=== PATIENT | female | born 1985 | race Caucasian/White ===

== ENCOUNTER 2022-05-11 09:42 | Outpatient (CLI) | payer OTHER, SELFPAY ==
[2022-05-11 12:24] LABS: Partial Thromboplastin Time* 27 Seconds (23-33)
== END 2022-05-11 09:43 | disposition home or self-care (01) ==
PROVIDERS: Visit Provider Obstetrics & Gynecology
DX: O09.523 Supervision of elderly multigravida, third trimester (principal); R76.8 Other specified abnormal immunological findings in serum; Z3A.30 30 weeks gestation of pregnancy
CPT/HCPCS: 85730

== ENCOUNTER 2022-06-23 08:56 | Outpatient (CLI) | payer OTHER, SELFPAY ==
--- OUTSIDE RECORDS SUMMARY | 2022-06-23 09:05 | XMS_ITS | Continuity of Care Document ---
:1985 Author Organization [facility] Address [address] [address] [place] [address] Phone Care Team Providers Name Role Phone Radha Shaffer Unavailable Unavailable Advance Directives Directive Yes / No Effective Date File Name No Information Encounters Encounter Practice Location Reason(s) Diagnoses Date Provider Provide rs Description For Visit Copied on Encounter [facility] No [facility] Information SUZETTE Garcia. [facility], [address] [address], [address] [place] [address], , [place], [facility] [id number], , [place], [id number], tel:[phone] tel:[phone] Family History Family Member Type Diagnosis Age At Onset No Information Immunizations Vaccine Date Status Comments tetanus toxoid, reduced administered Note: SC IC bi-directional diphtheria toxoid, and acellular interface ; Source: Other pertussis vaccine, adsorbed Lorena stry tetanus toxoid, reduced administered Note: SC IC bi-directional diphtheria toxoid, and acellular interface ; Source: Other pertussis vaccine, adsorbed Lorena stry tetanus toxoid, reduced administered Note: SC IC bi-directional diphtheria toxoid, and acellular interface ; Source: Other pertussis vaccine, adsorbed Lorena stry human papilloma virus vaccine, administered N ote: [facility] bi-directional quadrivalent interface ; Sour ce: Other Registry tetanus toxoid, reduced administered Note: SC IC bi-directional diphtheria toxoid, and acellular interface ; Source: Other pertussis vaccine, adsorbed Lorena stry Human Papillomavirus 9-valent administered No te: [facility] bi-directional vaccine interface ; Sour ce: Other Registry human papilloma virus vaccine, administered N ote: [facility] bi-directional quadrivalent interface ; Sour ce: Other Registry human papilloma virus vaccine, administered N ote: [facility] bi-directional quadrivalent interface ; Sour ce: Other Registry meningococcal polysaccharide administered Not e: [facility] bi-directional vaccine (MPSV4) interface ; Sour ce: Other Registry Engerix-B administered Note: [facility] bi-di rectional interface ; Sour ce: Other Registry measles, mumps and rubella virus administered Note: [facility] bi-directional vaccine interface ; Sour ce: Other Registry diphtheria, tetanus toxoids and administered Note: [facility] bi-directional acellular pertussis vaccine inte rface ; Source: Other Registry Haemophilus influenzae type b administered No te: [facility] bi-directional vaccine, PRP-T conjugate interfa ce ; Source: Other Registry diphtheria, tetanus toxoids and administered Note: [facility] bi-directional acellular pertussis vaccine inte rface ; Source: Other Registry measles, mumps and rubella virus administered Note: [facility] bi-directional vaccine interface ; Sour ce: Other Registry diphtheria, tetanus toxoids and administered Note: [facility] bi-directional pertussis vaccine interface ; So urce: Other Registry diphtheria, tetanus toxoids and administered Note: [facility] bi-directional pertussis vaccine interface ; So urce: Other Registry diphtheria, tetanus toxoids and administered Note: [facility] bi-directional pertussis vaccine interface ; So urce: Other Registry Payers Payer name Insurance type Covered alliance party ID Authorization(s ) No Information Social History Type Description Quantity Date Captured Comments Sex Female Smoking Status No Information Chief Complaint And Reason For Visit No Information Reason For Referral Reason For Referral No Information Plan Of Treatment Date Type Action Status Appointment [facility] History Of Present Illness Encounter Date Complaint History Of Present I llness No Information Functional Status Date Functional Assessment No Information Instructions Date Instruction Additional Informati on No Information Assessments Type Assessment Date No Information Patient Care Teams Name Effective Dates (start - stop) Status M embnadir No Information
--- OUTSIDE RECORDS SUMMARY | 2022-06-23 09:05 | XMS_ITS | Encounter Summary ---
:1985 Author Organization [place] Address [facility] [place] [address] Care Team Providers Name Role Phone Unavailable Primary Care Provider Unavailable Reason for Visit Reason Comments Ultrasound Consult L2/consult-nexly diagnosed h epatitis C infection Consultation (Routine: Next available opening) - Pending Review Specialty Diagnoses / Procedures Referred By Contact Refer red To Contact Diagnoses related condition, antepartum Araceli Reardon APRN [facility] [address] [place] [address] Referral ID Status Reason Start Date Expiration Date Visits V isits Requested Authorized [id number] Pending 12/21/2021 12/21/2022 1 1 Review Encounter Details Date Type Department Care Team Description 02/21/2022 Office Visit [facility] Corbin Reardon APRN [facility] [address] [place] [address] Chronic hepatitis C during , an tepartum (H) (Primary Dx); Maternal Britton Koenig MD [address] [facility] [address] [facility] [address] [place] [address] AMA (advanced maternal age) multigravida 35+, second trimester; Medicine Center Placenta pre via antepartum Hodge [address] [facility] [address] [place] [address] Social History Tobacco Use Types Packs/Day Years Used Date Never Assessed Sex Assigned at Date Recorded Female 02/15/2022 1:14 PM CDT COVID-19 Exposure Response Date Recorded In the last 10 days, have you been in contact with No / Unsu re 02/21/2022 8:37 AM CDT someone who was confirmed or suspected to have Coronavirus/COVID-19? documented as of this encounter Progress Notes Britton Koenig MD - 02/21/2022 9:30 AM CDT Please see Imaging tab under Chart Review for details of today's visit. Britton Koenig documented in this encounter Plan of Treatment Not on filedocumented as of this encounter Visit Diagnoses Diagnosis Chronic hepatitis C during , an tepartum (H) - Primary AMA (advanced maternal age) multigravida 35+, second trimester Placenta previa antepartum Placenta previa without hemorrhage, ante documented in this encounter
--- OUTSIDE RECORDS SUMMARY | 2022-06-23 09:05 | XMS_ITS | Encounter Summary ---
:1985 Author Organization [place] Address [address] [place] [address]. [place] [address] Care Team Providers Name Role Phone Unavailable Primary Care Provider Unavailable Encounter Details Date Type Department Care Team Description 02/21/2022 Travel Social History Tobacco Use Types Packs/Day Years Used Date Never Assessed Sex Assigned at Date Recorded Female 02/15/2022 1:14 PM CDT COVID-19 Exposure Response Date Recorded In the last 10 days, have you been in contact with No / Unsu re 02/21/2022 8:37 AM CDT someone who was confirmed or suspected to have Coronavirus/COVID-19? documented as of this encounter Plan of Treatment Not on filedocumented as of this encounter Visit Diagnoses Not on filedocumented in this encounter
--- OUTSIDE RECORDS SUMMARY | 2022-06-23 09:05 | XMS_ITS | Encounter Summary ---
:1985 Author Organization [place] Address [address] [place] [address]. [place] [address] Care Team Providers Name Role Phone Unavailable Primary Care Provider Unavailable Reason for Visit Reason Comments Ultrasound L2-newly dx Hepatitis C infe ction Consult newly dx Hepatitis C infecti on Encounter Details Date Type Department Care Team Description 02/14/2022 PRE VISIT [facility] Mary Mtz RN Ultra sound (L2-newly dx Maternal Medicine Hepa titis C infection); [facility] Consult (newly dx [address] Hepatiti s C infection) [address] [place] [address] Social History Tobacco Use Types Packs/Day Years Used Date Never Assessed Sex Assigned at Date Recorded Female 02/15/2022 1:14 PM CDT documented as of this encounter Plan of Treatment Not on filedocumented as of this encounter Visit Diagnoses Not on filedocumented in this encounter
--- OUTSIDE RECORDS SUMMARY | 2022-06-23 09:05 | XMS_ITS | Encounter Summary ---
:1985 Author Organization [place] Address [address] [facility] [place] [address] Care Team Providers Name Role Phone Unavailable Primary Care Provider Unavailable Reason for Referral Diagnostic Imaging Ultrasound (Routine) - Pending Review Specialty Diagnoses / Procedures Referred By Contact Refer red To Contact Diagnoses Acute viral hepatitis complicating in first trimester Amanda Kidd, Procedures [facility] Comprehensive Single DO [address] [place], [place] [address] Referral ID Status Reason Start Date Expiration Date Visits V isits Requested Authorized [id number] Pending 12/21/2021 12/21/2022 1 1 Review GE CAR ATTENDANT Encounter Details Date Type Department Care Team Description 12/21/2021 Orders Only [facility] Radha Johnson, Acute v iral hepatitis Maternal RN complicating Medicine Center in [facility] (Primary Dx) [address] [place], [place] [address] Social History Tobacco Use Types Packs/Day Years Used Date Never Assessed Sex Assigned at Date Recorded Female 02/15/2022 1:14 PM CDT documented as of this encounter Progress Notes Radha Johnson RN - 12/21/2021 12:53 PM CST Spoke with referring clinic to instruct them to send referral to GI per Dr. Kidd recommendations. [facility] will schedule pt for L2/Rad consult. Radha Johnson RN GE CAR ATTENDANT documented in this encounter Plan of Treatment Not on filedocumented as of this encounter Results [facility] US Comprehensive Single (02/21/2022 9:37 AM CDT) Anatomical Region Laterality Modality Ultrasound Specimen (Source) Anatomical Collection Method Collection Time Re ceived Time Location / / Volume Laterality 02/21/2022 8:47 AM CDT Impressions 02/21/2022 6:59 PM CDT IMPRESSION 1) Kaufman intrauterine at 1 8w 6d gestational age. 2) None of the anomalies commonly detect ed by ultrasound were evident in the detailed anatomic survey described above. 3) Growth parameters and estimated weight were consistent with an appropriate for gestation age pattern of growth. 4) The amniotic fluid volume appeared no rmal. 5) A posterior placenta previa was noted today. Narrative 02/21/2022 6:59 PM CDT Comprehensive Pat. Name: COURT ABBASI Study Date: 02/21/2022 8:47am Pat. NO: [id number] Referring ??: GRACIE HENNING Site: [facility] Basic Sciences Professor: Eri Bates RD MS : 1985 Age: 36 INDICATION Advanced Maternal Age--Multigravida, dec lined screening. Hepatitis C. METHOD Transabdominal ultrasound examination. V iew: Sufficient Kaufman . Number of fetuses: 1 DATING ? Date ?Details ?Gest. age ?KAREEM LMP ?10/12/2021 ? 18 w + 6 d ? 07/19/2022 Prior assessment ? 2/ 12/2021 ?GA: 9 w + 3 d ? 19 w + 2 d ? 07/16/2022 U/S ? 02/21/2022 ? based upon AC, BPD, Femur, HC ? 18 w + 5 d ? 07/20/2022 Assigned dating ?Dating performed on 02/21/2022, based on the LMP ?18 w + 6 d ? 07/19/2022 GENERAL EVALUATION Cardiac activity present. FHR 141 bpm. movements present. Presentation breech. Placenta Posterior, previa. Umbilical cord 3 vessel cord. Amniotic fluid Amount of AF: normal. MVP 5.0 cm. BIOMETRY Main Biometry: BPD ?41.0 ?mm ? 18w 3d ?Hadlock OFD ?58.9 ?mm ? 19w 2d ?Nicolaides HC ?161.0 ?mm ?18w 6d ?Hadlock Cerebellum tr ?19.6 ? mm ?18w 6d ?Nicolaides AC ?132.5 ?mm ?18w 5d ?42% ?Hadlock Femur ?28.3 ? mm ?18w 5d ?Hadlock Humerus ?29.3 ?mm ? 19w 4d ?Anton Weight Calculation: EFW ? 254 ? g ? 37% ?Hadlock EFW (lb,oz) ? 0 lb 9 ?oz EFW by ?[facility] ([id number]) Head / Face / Neck Biometry: Certified Hearing Instrument Dispenser ? 6.8 ? mm CM ?4.9 ? mm Nasal bone ? 6.3 ? mm Nuchal fold ? 5.6 ? mm ANATOMY The following structures appear normal: Head / Neck ? Cranium. Head size. Head shape. Lateral ventricles. Choroid plexus. Midline falx. Cavum septi pellucidi. Cerebellum. Cisterna magna. ? Parenchyma. Thalami. Vermis. ? Neck. Nuchal fold. Face ? Lips. Profile. Nose. Maxilla. Mandible. Orbits. Lens. Heart / Thorax ?4-chamber view. RVOT view. LVOT view. Situs. Aortic arch view. Bicaval view. Ductal arch view. Superior vena cava. Inferior vena cava. 3-vessel ? view. 8-[id number]-ccztjlq view. Cardiac position. Cardiac size. Cardiac rhythm. ? Right lung. Left lung. Diaphragm. Abdomen ? Abdominal wall. Cord insertion. Stomach. Kidneys. Bladder. Liver. Bowel. Genitals. Spine ?Cervical spine. Thoracic spine. Lumbar spine. Sacral spine. Extremities / Skeleton ?Rig ht arm. Right hand. Left arm. Left hand. Right leg. Right foot. Left leg. Left foot. Gender: female. MATERNAL STRUCTURES Cervix ?Visualized ? Appearance: Appears Closed ? Approach - Transabdominal: Cervical length 42.6 mm Right Ovary ?Visualized Left Ovary ?Visualized RECOMMENDATION We discussed the findings on today's ult rasound with the patient. The patient has declined all aneuploidy screening and diagnostic testing. Given finding of placenta previa, recommend pelvic rest and avoidance of straining/strenuous activity until resolution of previa. We then reviewed Court's diagnosis of Hepatis C, which was first noted during this . She states that she was not screened in prior pregnancies. She is asymptomatic and has not yet had an oppo rtunity to meet with Gastroenterology yet. The source of Court's Hepatitis C infection is not known at this time. We reviewed that during , treatment of Hepa titis C is not typically recommended in . We reviewed that generally, Hepatitis C is not associated with significant alterations in care, excepting an increased risk for cholestasis of , FGR and vertical transmission to the ( 5%). Recommend testing for HIV infection if not already done. Carlos mata, recommend vaccination against Hepatitis A and B if Court is not immune. Given her positive HCV RNA on December 2021, recommend Hepatology referral and assess ment of the following labs: AST, ALT, bilirubin, serum albumin, CBC, PTT, HCV genotype and recommend comprehensive STI screening if not already done. If sympto ms of IHCP are noted, also recommend testing for this with fasting bile acids. Finally, we reviewed that CS is recommended for routine OB indications and avoiding inte rnal monitors, early AROM and expectant management of rupture of membranes at term may also reduce vertical transmission. A repeat assessment of growth, anato my and placental location will be scheduled here at 28-30 weeks as well. Court had no further questions today and she will plan to schedule an appointment with Hepatolo jose guadalupe. Return to primary provider for continued care. Thank you for the opportunity to partici dawkins in the care of this patient. If you have questions regarding today's evaluation or if we can be of further service, please contact the M[facility] Center. anomalies may be present but not detected I spent a total of 30 minutes on the ovidio e of this encounter in the care of Court Abbasi, includin minutes reviewing the patient's chart, 20 minutes in direct patient contact, 5 minutes documenting in the wv dical record. Please see note for details. Procedure Note Britton Koenig MD - 02/21/2022Formatt ing of this note might be different from the original. Comprehensive Pat. Name:Fabian ABBASI Date:10/2022 8:47am Pat. NO: [id number] MD:YANE HENNING [facility]ri [facility] :1985Age:36 INDICATION Advanced Maternal Age--Multigravida, dec lined screening. Hepatitis C. METHOD Transabdominal ultrasound examination. V iew: Sufficient Kaufman . Number of fetuses: 1 DATING Date Details Gest. age KAREEM LMP 10/12/2021 18 w + 6 d 07/19/2022 Prior assessment 12/14/2021 GA: 9 w + 3 d 19 w + 2 d 07/16/2022 U/S 02/21/2022 based upon AC, BPD, Femur, HC 18 w + 5 d 07/20/2022 Assigned dating Dating performed on 02/10, based on the LMP 18 w + 6 d 07/19/2022 GENERAL EVALUATION Cardiac activity present. FHR 141 bpm. movements present. Presentation breech. Placenta Posterior, previa. Umbilical cord 3 vessel cord. Amniotic fluid Amount of AF: normal. MVP 5.0 cm. BIOMETRY Main Biometry: BPD 41.0 mm 18w 3d Hadlock OFD 58.9 mm 19w 2d Nicolaides HC 161.0 mm 18w 6d Hadlock Cerebellum tr 19.6 mm 18w 6d Nicolaides AC 132.5 mm 18w 5d 42% Hadlock Femur 28.3 mm 18w 5d Hadlock Humerus 29.3 mm 19w 4d Anton Weight Calculation: EFW 254 g 37% Hadlock EFW (lb,oz) 0 lb 9 oz EFW by Hadlock ([id number]) Head / Face / Neck Biometry: Certified Hearing Instrument Dispenser 6.8 mm CM 4.9 mm Nasal bone 6.3 mm Nuchal fold 5.6 mm ANATOMY The following structures appear normal: Head / Neck Cranium. Head size. Head sha pe. Lateral ventricles. Choroid plexus. Midline falx. Cavum septi pellucidi. Cerebellum. Cisterna magna. Parenchyma. Thalami. Vermis. Neck. Nuchal fold. Face Lips. Profile. Nose. Maxilla. May ble. Orbits. Lens. Heart / Thorax 4-chamber view. RVOT view . LVOT view. Situs. Aortic arch view. Bicaval view. Ductal arch view. Superior vena cava. Inferior vena cava. 3-vessel view. 3-nkueht-mdwcrue view. Cardiac po sition. Cardiac size. Cardiac rhythm. Right lung. Left lung. Diaphragm. Abdomen Abdominal wall. Cord insertion. Stomach. Kidneys. Bladder. Liver. Bowel. Genitals. Spine Cervical spine. Thoracic spine. Vita mbar spine. Sacral spine. Extremities / Skeleton Right arm. Right hand. Left arm. Left hand. Right leg. Right foot. Left leg. Left foot. Gender: female. MATERNAL STRUCTURES Cervix Visualized Appearance: Appears Closed Approach - Transabdominal: Cervical katrina gth 42.6 mm Right Ovary Visualized Left Ovary Visualized RECOMMENDATION We discussed the findings on today's [facility] rasound with the patient. The patient has declined all aneuploidy screening and diagnostic testing. Given finding of placenta previa, recommend pelvic rest and avoidance of straining/strenuous activity until resolution of previa. We then reviewed Corut's diagnosis of Hepatis C, which was first noted during this . She states that she was not screened in prior pregnancies. She is asymptomatic and has not yet had an oppo rtunity to meet with Gastroenterology yet. The source of Court's Hepatitis C infection is not known at this time. We reviewed that during , treatment of Hepa titis C is not typically recommended in . We reviewed that generally, Hepatitis C is not associated with significant alterations in care, excepting an increased risk for cholestasis of , FGR and vertical transmission to the ( 5%). Recommend testing for HIV infection if not already done. Carlos mata, recommend vaccination against Hepatitis A and B if Court is not immune. Given her positive HCV RNA on December 2021, recommend Hepatology referral and assess ment of the following labs: AST, ALT, bilirubin, serum albumin, CBC, PTT, HCV genotype and recommend comprehensive STI screening if not already done. If sympto ms of IHCP are noted, also recommend testing for this with fasting bile acids. Finally, we reviewed that CS is recommended for routine OB indications and avoiding inte rnal monitors, early AROM and expectant management of rupture of membranes at term may also reduce vertical transmission. A repeat assessment of growth, anato my and placental location will be scheduled here at 28-30 weeks as well. Court had no further questions today and she will plan to schedule an appointment with Hepatolo gy. Return to primary provider for continued care. Thank you for the opportunity to partici juancho in the care of this patient. If you have questions regarding today's evaluation or if we can be of further service, please contact the Maternal[facility] Medicine Center. anomalies may be present but not detected I spent a total of 30 minutes on the ovidio e of this encounter in the care of Court Abbasi, includin minutes reviewing the patient's chart, 20 minutes in direct patient contact, 5 minutes documenting in the wv dical record. Please see note for details. IMPRESSION 1) Kaufman intrauterine at 1 8w 6d gestational age. 2) None of the anomalies commonly detect ed by ultrasound were evident in the detailed anatomic survey described above. 3) Growth parameters and estimated weight were consistent with an appropriate for gestation age pattern of growth. 4) The amniotic fluid volume appeared no rmal. 5) A posterior placenta previa was noted today. Amanda Kidd DO IMG [facility] US ORDERABLES documented in this encounter Visit Diagnoses Diagnosis Acute viral hepatitis complicating pregn gabriel in first trimester - Primary Acute viral hepatitis complicating pregn gabriel in first trimester documented in this encounter
--- OUTSIDE RECORDS SUMMARY | 2022-06-23 09:05 | XMS_ITS | Encounter Summary ---
:1985 Author Organization [place] Address [address] [place] [address]. [place] [address] Care Team Providers Name Role Phone Unavailable Primary Care Provider Unavailable Encounter Details Date Type Department Care Team Description 02/15/2022 Travel Social History Tobacco Use Types Packs/Day Years Used Date Never Assessed Sex Assigned at Date Recorded Female 02/15/2022 1:14 PM CDT COVID-19 Exposure Response Date Recorded In the last month, have you been in contact with No / Unsure 02/15/2022 1:19 PM CDT someone who was confirmed or suspected to have Coronavirus / COVID-19? documented as of this encounter Plan of Treatment Not on filedocumented as of this encounter Visit Diagnoses Not on filedocumented in this encounter
--- OUTSIDE RECORDS SUMMARY | 2022-06-23 09:05 | XMS_ITS | Clinical Summary ---
:1985 Author Organization [place] Address [address] [place] [address]. [place] [address] Care Team Providers Name Role Phone Unavailable Primary Care Provider Unavailable Social History Tobacco Use Types Packs/Day Years Used Date Never Assessed Estimated Date of Delivery Comments Yes 07/19/2022 Based on last menstr ual period of 10/12/2021 Sex Assigned at Date Recorded Female 02/15/2022 1:14 PM CDT Plan of Treatment Health Maintenance Due Date Last Done Comments ADVANCE CARE PLANNING 1985 ANNUAL REVIEW OF HM ORDERS 1985 PREVENTIVE CARE VISIT 1986 COVID-19 Vaccine (#1) 06/29/1987 Pneumococcal Vaccine: 1992 Pediatrics (0 to 5 Years) and At-Risk Patients (6 to 64 Years) (1 - PCV) HIV SCREENING 2001 HEPATITIS B IMMUNIZATION (2 05/31/2005 05/03/2005 of 3 - Risk 3-dose series) PAP 2007 PHQ-2 (once per calendar 11/12/2021 year) MATERNAL SCREENING 01/25/2022 OBGCT (OB) 03/29/2022 REPEAT ANTIBODY SCREEN (OB) 04/26/2022 INFLUENZA VACCINE (#1) 2022 DTAP/TDAP/TD IMMUNIZATION 06/28/2027 06/28/2017, 08/09/2016 , (10 - Td or Tdap) 11/20/2012, Additional history exists IPV IMMUNIZATION Completed 07/11/1988, 09/20/1987, 07/20/1987, Additional history exists MENINGITIS IMMUNIZATION Aged Out No longe r eligible based on patient 's age to complete this topic Insurance Payer Benefit Plan / Subscriber ID Effective Dates Phone Addre ss Type Group MEDICA MEDICA CHOICE [id number] 2021-Present [id number] Indemnity [address] [place] [address]
--- OUTSIDE RECORDS SUMMARY | 2022-06-23 09:05 | XMS_ITS | Encounter Summary ---
:1985 Author Organization [place] Address [facility] [place] [address] Care Team Providers Name Role Phone Unavailable Primary Care Provider Unavailable Reason for Referral Consultation (Routine: Next available opening) - Pending Review Specialty Diagnoses / Procedures Referred By Contact Refer red To Contact Diagnoses related condition, antepartum Araceli Reardon APRN CNP [facility] [address] [place] [address] Referral ID Status Reason Start Date Expiration Date Visits V isits Requested Authorized [id number] Pending 12/21/2021 12/21/2022 1 1 Review ROUTE CONTROLLER Encounter Details Date Type Department Care Team Description 12/21/2021 Transcribe Orders [facility] Caron, Vitor gabriel related Maternal Araceli Calderon APRN condition , Medicine Center ADMISSIONS SUPERVISOR antepartum (Primary [facility] Dx) [address] [place], [place] [address] [facility] [address] [place], [place] [phone] [id number] Social History Tobacco Use Types Packs/Day Years Used Date Never Assessed Sex Assigned at Date Recorded Female 02/15/2022 1:14 PM CDT documented as of this encounter Plan of Treatment Scheduled Referrals Name Type Priority Associated Diagnoses Order S chedule MF Office Visit Referral Routine: Next related Weekl y for 1 available opening condition, Occurrence s starting antepartum 12/21/2021 unti l 12/21/2022 documented as of this encounter Visit Diagnoses Diagnosis related condition, antepartum - Primary documented in this encounter
--- OUTSIDE RECORDS SUMMARY | 2022-06-23 09:05 | XMS_ITS | Encounter Summary ---
:1985 Author Organization [place] Address [address] [place] [address]. [place] [address] Care Team Providers Name Role Phone Unavailable Primary Care Provider Unavailable Encounter Details Date Type Department Care Team Description 12/19/2021 Medical Correspondence [facility] Scan, MATERNAL Health Info Mgmt Non-Provider MEDICINE CE [facility] PROVIDER SERVICE [address] [place] [address] [place] [address] [facility] [phone] AND CLINICS Social History Tobacco Use Types Packs/Day Years Used Date Never Assessed Sex Assigned at Date Recorded Female 02/15/2022 1:14 PM CDT documented as of this encounter Plan of Treatment Not on filedocumented as of this encounter Visit Diagnoses Not on filedocumented in this encounter
--- OUTSIDE RECORDS SUMMARY | 2022-06-23 09:05 | XMS_ITS | Encounter Summary ---
:1985 Author Organization [place] Address [facility] [place] [address] Care Team Providers Name Role Phone Unavailable Primary Care Provider Unavailable Reason for Referral Consultation (Routine) - Pending Review Specialty Diagnoses / Procedures Referred By Contact Refer red To Contact Diagnoses related condition Araceli Reardon APRN CNP [facility] [address] [place] [address] Referral ID Status Reason Start Date Expiration Date Visits V isits Requested Authorized [id number] Pending 12/20/2021 12/20/2022 1 1 Review ET MAKER PORK Encounter Details Date Type Department Care Team Description 12/20/2021 Transcribe Orders [facility] Vitor Reardon gabriel related Maternal Araceli Calderon APRN condition (Primary Medicine Center PLASMA CENTER TECHNICIAN Dx) [facility] [address] [facility] [address] [place] [id number] Social History Tobacco Use Types Packs/Day Years Used Date Never Assessed Sex Assigned at Date Recorded Female 02/15/2022 1:14 PM CDT documented as of this encounter Plan of Treatment Scheduled Referrals Name Type Priority Associated Diagnoses Order S chedule Mat Med Ctr Referral [place] related Expec darron: 12/20/2021 Referral - condition (Approx imate), Expires: 2021 documented as of this encounter Visit Diagnoses Diagnosis related condition - Primary Unspecified complication of , u nspecified as to episode of care documented in this encounter
--- OUTSIDE RECORDS SUMMARY | 2022-06-23 09:05 | XMS_ITS | Encounter Summary ---
:1985 Author Organization [place] Address [address] [facility] [place] [address] Care Team Providers Name Role Phone Unavailable Primary Care Provider Unavailable Reason for Referral Diagnostic Imaging Ultrasound (Routine) - Pending Review Specialty Diagnoses / Procedures Referred By Contact Refer red To Contact Diagnoses Acute viral hepatitis complicating in first trimester Amanda Kidd, Procedures MFM US Comprehensive Single DO [address] [place] [place], [place] [address] Referral ID Status Reason Start Date Expiration Date Visits V isits Requested Authorized [id number] Pending 12/21/2021 12/21/2022 1 1 Review Reason for Visit Diagnostic Imaging Ultrasound (Routine) - Pending Review Specialty Diagnoses / Procedures Referred By Contact Refer red To Contact Diagnoses Acute viral hepatitis complicating in first trimester Amanda Kidd, Procedures MF US Comprehensive Single DO [address] [place] [place], [place] [address] Referral ID Status Reason Start Date Expiration Date Visits V isits Requested Authorized [id number] Pending 12/21/2021 12/21/2022 1 1 Review Encounter Details Date Type Department Care Team Description 02/21/[address] [facility] Lili Kidd DO [address] [place], [place] [address] Acute viral Maternal Britton Koenig MD [address] [place], [place] [phone] hepatitis Medicine Center complicating [place] in first [address] [place] [address] Social History Tobacco Use Types [...] Not on filedocumented as of this encounter Procedures Procedure Name Priority Date/Time Associated Diagnosis Comme nts [facility] US COMPREHENSIVE Routine 02/21/2022 9:37 Acute viral Resu lts for this SINGLE AM CDT hepatitis procedure are i n complicating the results in first section. trimester documented in this encounter Results [facility] US Comprehensive Single (02/21/2022 9:37 AM [...] 6:59 PM CDT Comprehensive Pat. Name: COURT HOOD Study Date: 02/21/2022 8:47am Pat. NO: [id number] Referring ??MD: GRACIE HENNING Site: [facility] Director Of Personnel: Eri Bates RD MS : 1985 Age: [...] Biometry: BPD ?41.0 ?mm ? 18w 3d ?Mamta NIX ?58.9 ?mm ? 19w 2d ?Nicolaides HC ?161.0 ?mm ?18w 6d ?Hadlock Cerebellum tr ?19.6 ? mm ?18w 6d ?Nicolaides AC ?132.5 ?mm ?18w 5d ?42% ?Hadlock Femur ?28.3 ? mm ?18w 5d ?Hadlock Humerus ?29.3 ?mm ? 19w 4d ?Anton Weight Calculation: EFW ? 254 ? g ? 37% ?Hadlock EFW (lb,oz) ? 0 lb 9 ?oz EFW by ?Hadlock ([id number]) Head / Face / Neck Biometry: Belt Sewer ? 6.8 ? mm CM ?4.9 ? [...] cava. Inferior vena cava. 3-vessel ? view. 9-aidano-jputfbp view. Cardiac position. Cardiac size. Cardiac rhythm. [...] HIV infection if not already done. Carlos aliciay, recommend vaccination against Hepatitis A and B [...] will plan to schedule an appointment with Hepatscott shi. Return to primary provider for continued care. [...] this encounter in the care of Court Hood, includin minutes reviewing the patient's chart, 20 minutes in direct patient contact, 5 minutes documenting in the md dical record. Please see note for details. Procedure Note Britton Koenig MD - 02/21/2022Formatt ing of this note might be different from the original. Comprehensive Pat. Name:Fabian HOOD Date:10/2022 8:47am Pat. NO: [id number] MD:YANE HENNING [facility]Eri Bates RDMS :1985Age:36 INDICATION Advanced Maternal Age--Multigravida, dec lined [...] 0 lb 9 oz EFW by Hadlock ([id number]) Head / Face / Neck Biometry: Belt Sewer 6.8 mm CM 4.9 mm Nasal bone [...] vena cava. Inferior vena cava. 3-vessel view. 2-pjeeft-wgqwdrk view. Cardiac po sition. Cardiac size. Cardiac [...] Appearance: Appears Closed Approach - Transabdominal: Cervical katrnia gth 42.6 mm Right Ovary Visualized Left Ovary Visualized RECOMMENDATION We discussed the findings on today's [facility] rasound with the patient. The patient has [...] will plan to schedule an appointment with Tianna shi. Return to primary provider for continued care. [...] this encounter in the care of Court Hood, includin minutes reviewing the patient's chart, 20 minutes in direct patient contact, 5 minutes documenting in the md dical record. Please see note for details. [...] previa was noted today. Amanda Kidd DO [facility] US ORDERABLES documented in this encounter Visit Diagnoses Diagnosis Acute viral hepatitis complicating pregn gabriel in first trimester documented in this encounter
--- OUTSIDE RECORDS SUMMARY | 2022-06-23 09:05 | XMS_ITS | Encounter Summary ---
:1985 Author Organization [place] Address [address] [place] [address] Care Team Providers Name Role Phone Unavailable Primary Care Provider Unavailable Reason for Visit Reason Onset Date Comments Appointment 02/16/2022 Encounter Details Date Type Department Care Team Description 02/16/2022 Telephone [facility] Maternal Loren Mtz, JEFFREY Appointment Medicine Center [place] [address] [facility] [address] [place] [address] Social History Tobacco Use Types Packs/Day Years Used Date Never Assessed Sex Assigned at Date Recorded Female 02/15/2022 1:14 PM CDT COVID-19 Exposure Response Date Recorded In the last month, have you been in contact with No / Unsure 02/15/2022 1:19 PM CDT someone who was confirmed or suspected to have Coronavirus / COVID-19? documented as of this encounter Miscellaneous Notes Telephone Encounter - Mary Mtz RN - 02/16/2022 1:56 PM CDT Left vague message for patient to call back to clinic regarding upcoming appointment. Reason for call was to inquire if patient has already been seen by GI and if so to bring records with to [facility] appointment next week-this information was not left in the voicemail. documented in this encounter Plan of Treatment Not on filedocumented as of this encounter Visit Diagnoses Not on filedocumented in this encounter
[2022-06-24 13:31] LABS: Strep B DNA Probe NEGATIVE (Negative)
== END 2022-06-23 08:57 | disposition home or self-care (01) ==
LOC: NFLDREF 08:56
PROVIDERS: Visit Provider Obstetrics & Gynecology
DX: O09.513 Supervision of elderly primigravida, third trimester (principal); Z3A.36 36 weeks gestation of pregnancy
CPT/HCPCS: 76816; 87081; 87653

== ENCOUNTER 2022-07-07 09:37 | Inpatient (IN) | payer OTHER, SELFPAY ==
[2022-07-07] VITALS (18 sets, daily range): BP systolic 126–179; BP diastolic 64–98; PULSE 73–112; RESP 16; TEMP 36.8; O2SAT 97; BMI 23.4
[2022-07-07 10:24] LABS: Hematocrit 38.6 % (33.0-51.0); Hemoglobin* 12.7 gm/dL (12.0-16.0); Mean Corpuscular HGB Conc 33 gm/dL (32-36); Mean Corpuscular Hemoglobin 28 pg (26-34); Mean Corpuscular Volume 85 fL (80-100); Platelet Count* 172 K/uL (140-440); Red Blood Count 4.56 m/uL (4.00-5.20); White Blood Count* 5.96 K/uL (4.50-11.00)
[2022-07-07 10:26] LABS: Slide Review Reflex No
[2022-07-07 10:39] LABS: Estimated Glomerular Filt Rate 75 ml/min
[2022-07-07 10:40] LABS: Alanine Aminotransferase* 30 U/L (4-35); Aspartate Amino Transferase* 37 U/L (12-35); Blood Urea Nitrogen* 11 mg/dL (5-24)
[2022-07-07 10:54] LABS: SARS PCR* Negative SARS-CoV-2 (Negative)
[2022-07-07] MEDS: OXYTOCIN 30 unit/500 ML in NS 30 UNIT/500 ML BAG IVPB (10:59)
[2022-07-07] MEDS: LACTATED RINGERS 1000 ML 1,000 ML 125 ML IV (11:01)
--- NOTE | 2022-07-07 11:03 | P.LDBA_ITS ---
Subjective History of Present Illness Date Seen: 07/07/22 Narrative: Patient is being admitted to Labor and Delivery for induction of labor for gestational HTN vs preeclampsia. She is a 36 year old -0-1-3 woman at 38 weeks, 2 days gestation. Her blood pressure on 06/30/2022 was 138/90. Her blood pressure today in clinic was 118/96, repeat 132/101. Specific Issues/Plans Blood Type: A positive G5, P3013 : Magdaleno Kids: Aguilar Ace (Presley)Aleisha 1.?Newly diagnosed Hepatitis C POSITIVE?at first OB visit (no h/o blood transfusion.? No h/o IVDU) HCV ab +, viral load: 2,818,483 * Hepatic panel: AST:38 slightly elevated, otherwise normal * Per MFM: Increased risk of cholestasis, IUGR and approximately 5% risk of vertical transmission to .? US at 28 weeks shows EFW 68%.? * Recommended vaccination against hepatitis A and B if Court is not immune.? * Hepatology referral pending. Assessment of labs was recommended by MFM, to include PTT, HCV genotype, bile acids if any sx of cholestasis.? Patient states Hepatology Clinic has now recommended consultation, not antepartum consultation. * HCV genotype:1a or 1b, they could not distinguish.? PTT:27 * Avoid prolonged ROM (>6 hrs), scalp electrode.? for standard indications.? 2.?AMA * Declined serum genetic screening. * LVL 2 USN with MFM? 02/21/22:? 18 6/7 weeks.? No anomalies.? Posterior placenta previa.? Three-vessel cord.? MVP 5 cm.? AC 42%, EFW 37%. 3.? Placenta previa noted on level 2 US. * Repeat US to assess placenta at 28-30 weeks with MFM.? * Recommended pelvic rest and avoidance of straining/strenuous activity until resolution of previa.? * Planning Repeat US here at 28 weeks: Resolved; posterior placenta 3.5 cm from os. ? 4.??History of precipitous 5.? Elevated 1 hr GTT = 142.? 3 hr GTT: 99/143/169/80 (normal).? 6.? Size less than dates.? Normal EFW on US at 36 weeks, 53%. Flu: declines, encouraged Covid: declines, encouraged Tdap:? Declined 05/24/2022, may consider Her full history and physical was dictated by Dr. Mendoza on 06/30/22. Please see this for details. Comments: BUN 11, creatinine 1.0. This is elevated for . AST is mildly elevated at 37, ALT normal at 30. CBCs entirely normal with a platelet count of 172 OB - H&P: Exam Physical Exam: Vital signs: Pulse BP 88 145/91 H 07/07/22 10:54 07/07/22 10:54 Narrative: Cervix 6 / 90 / -2 / anterior / soft, bulging bag of water Heart Tones: Baseline 140, accelerations present, no decelerations, moderate variability in the last 1/2 hour. OB - Problem Based A/P Additional Plan (1) Preeclampsia: Status: Acute Plan: Currently with creatinine 1.0, AST 37. Not yet in severe range. I will repeat preeclampsia labs in 8 hours. (2) : Status: Acute Plan: Otherwise, plan for induction of labor for indication of preeclampsia without severe features. Cervix is favorable. Begin Pitocin for induction of labor, with position changes to promote descent of head. AROM when head at appropriate station. (3) Hepatitis C antibody test positive: Status: Acute Plan: I will avoid prolonged rupture of membranes. Given that she has a history of precipitous , and her cervix is quite open at this moment, this will be very unlikely. Plan Repeat preE labs 8 hours Delivery/Labor/Induction Plan Plan: induction Induction method: per pitocin protocol
[2022-07-07 11:34] LABS: Total Protein Urine 21 mg/dL
[2022-07-07 11:35] LABS: Creatinine Urine 63.6 mg/dL
--- NOTE | 2022-07-07 15:46 | PM.OBPRCVD ---
Procedure Delivery date: 07/07/22 Procedure Done: [employer] Procedure Details: The patient is a 36 year-old -0-1-3 woman admitted on 07/07/22 at 38 Weeks, 2 Days gestation for induction of labor for preeclampsia without severe features.? Cervical exam on admission was 6 cm/90 % effaced/-3 station with membranes intact in vertex presentation.? Contractions were irregular.? heart rate demonstrated baseline 150 bpm with moderate variability, positive accelerations, intermittent variable decelerations; a category 2 tracing.? SROM occurred at 2:19 p.m. with clear fluid. ? Labor Analgesia:? None ? Pitocin:? Yes ? Labor onset:? 2:19 p.m. ? Complete:? 2:17 p.m. ? Pushing:? 2:17 p.m. ? heart tones during second stage were reassuring. ? At 2:24 p.m. a viable female infant delivered in vertex OP with restitution to LOT presentation over small second-degree perineal laceration via spontaneous vaginal delivery.? Infant was placed on maternal abdomen.? Cord was clamped and cut after approximately 2 minutes.? Nose and mouth were bulb suctioned.? Infant weight pending.? 9 at 1 minute and 9 at 5 minutes.? Shoulder dystocia: No.? Nuchal cord: No. ? Placenta delivered spontaneously and complete at 2:27 p.m. with a 3 vessel cord. ? Mother and infant were stable after delivery. ? Lacerations:? Second-degree perineal, repaired with 3-0 Vicryl in the usual fashion after infiltration with 10 mL of 1% lidocaine. ? Blood loss: 300 mL. Blood loss measurement type: EBL ? Sponge and needles counts are correct. Estimated blood loss (mL): 300 [place] Infant Gender: Female total score - 1 minute: 9 total score - 5 minute: 9
[2022-07-07] MEDS: OXYTOCIN 30 unit/500 ML in NS 30 UNIT/500 ML BAG 300 UNIT IVPB (16:09)
[2022-07-07] MEDS: LIDOCAINE 1% MDV 20 ML INJECTION (16:11)
[2022-07-07 18:23] LABS: Hematocrit 36.6 % (33.0-51.0); Hemoglobin* 12.2 gm/dL (12.0-16.0); Mean Corpuscular HGB Conc 33 gm/dL (32-36); Mean Corpuscular Hemoglobin 28 pg (26-34); Mean Corpuscular Volume 85 fL (80-100); Platelet Count* 166 K/uL (140-440); White Blood Count* 13.37 K/uL (4.50-11.00)
[2022-07-07 18:29] LABS: Slide Review Reflex No
[2022-07-07 18:39] LABS: Alanine Aminotransferase* 27 U/L (4-35); Aspartate Amino Transferase* 44 U/L (12-35); Blood Urea Nitrogen* 11 mg/dL (5-24); Creatinine* 0.9 mg/dL (0.5-1.5); Estimated Glomerular Filt Rate 86 ml/min
[2022-07-08] VITALS (8 sets, daily range): BP systolic 123–153; BP diastolic 78–95; PULSE 69–85; RESP 16; TEMP 36.6–36.9; O2SAT 95–100
[2022-07-08 05:01] LABS: Hematocrit 33.7 % (33.0-51.0); Hemoglobin* 11.2 gm/dL (12.0-16.0); Mean Corpuscular HGB Conc 33 gm/dL (32-36); Mean Corpuscular Hemoglobin 28 pg (26-34); Mean Corpuscular Volume 85 fL (80-100); Platelet Count* 160 K/uL (140-440); Red Blood Count 3.99 m/uL (4.00-5.20); White Blood Count* 9.74 K/uL (4.50-11.00)
[2022-07-08 05:07] LABS: Slide Review Reflex No
[2022-07-08 05:12] LABS: Alanine Aminotransferase* 29 U/L (4-35); Aspartate Amino Transferase* 69 U/L (12-35); Blood Urea Nitrogen* 9 mg/dL (5-24); Creatinine* 0.9 mg/dL (0.5-1.5); Estimated Glomerular Filt Rate 86 ml/min
--- NOTE | 2022-07-08 09:53 | PM.OBPNCS1 ---
OB - PN: A/P Assessment and Plan (1) Preeclampsia: Status: Acute (2) : Status: Deleted (3) Hepatitis C antibody test positive: Status: Acute Plan Repeat HELLP labs at 6pm. Patient requesting that if labs are improving she would like to go home tonight. She understands what symptoms to look out for, she is okay with monitoring blood pressures at home and would carmine sure to follow up in clinic in 1 week. Discussed with patient concerns with preeclampsia, mostly if there is concerns for severity which include seizures, stroke, permanent neurological deficits, . Will continue to monitor vtal signs closely. Plan day: 1 OB - PN: Subj Subjective Date Seen: 07/08/22 Patient comments: pain well controlled, tolerating diet and flatus present Mccrory status: Narrative: PPD 1 doing well. Blood pressures have remained elevated but not on severity range. Denies headaches, visual changes or pain in her upper abdomen. Labs this am, AST still trending upwards. Has not doubled yet. Patient has concerns that this could be associated with Hepatitis C instead of preeclampsia. Otherwise she feels great. Las this am hemoglobin stable, normal platelets, creatinine improved to 0.9. AST slightly increased from 44 to 69, still has not doubled. Normal ALT OB - PN: Obj Exam Physical Exam: Vital signs: Temp Pulse Resp BP Pulse Ox O2 Del Method 98.1 F 78 16 137/88 98 07/08/22 07:28 07/08/22 07:28 07/08/22 07:28 07/08/22 07:28 07/08/22 07:28 07/08/22 07:28 Narrative: General: AAO X3 Chest: CTA x2, RRR Abdomen: Well contracted uterus, non tender Pelvis: Normal lochia Constitutional: Constitutional: no acute distress OB - PN: Obj Data Labs Labs: Laboratory Results - last 24 hr 07/07/22 07/07/22 07/07/22 09:51 10:18 10:18 WBC 5.96 RBC 4.56 Hgb 12.7 Hct 38.6 MCV 85 MCH 28 MCHC 33 Plt Count 172 BUN 11 Creatinine 1.0 Estimated Creat Clear 62.10 Estimated GFR 75 AST 37 H ALT 30 Urine Creatinine Protein/Creatinin Ratio Urine Total Protein SARS-CoV-2 (PCR) Negative SARS-CoV-2 07/07/22 07/07/22 07/07/22 10:50 18:18 18:18 WBC 13.37 H RBC 4.30 Hgb 12.2 Hct 36.6 MCV 85 MCH 28 MCHC 33 Plt Count 166 BUN 11 Creatinine 0.9 Estimated Creat Clear 69.00 Estimated GFR 86 AST 44 H ALT 27 Urine Creatinine 63.6 Protein/Creatinin Ratio 0.30 H Urine Total Protein 21 SARS-CoV-2 (PCR) 07/08/22 07/08/22 04:46 04:46 WBC 9.74 RBC 3.99 L Hgb 11.2 L Hct 33.7 MCV 85 MCH 28 MCHC 33 Plt Count 160 BUN 9 Creatinine 0.9 Estimated Creat Clear 69.00 Estimated GFR 86 AST 69 H ALT 29 Urine Creatinine Protein/Creatinin Ratio Urine Total Protein SARS-CoV-2 (PCR)
[2022-07-08] MEDS: LABETALOL HCL 100 MG TABLET PO (18:02)
[2022-07-08 18:07] LABS: Hematocrit 34.2 % (33.0-51.0); Hemoglobin* 11.4 gm/dL (12.0-16.0); Mean Corpuscular HGB Conc 33 gm/dL (32-36); Mean Corpuscular Hemoglobin 28 pg (26-34); Mean Corpuscular Volume 85 fL (80-100); Platelet Count* 175 K/uL (140-440); Red Blood Count 4.01 m/uL (4.00-5.20); White Blood Count* 9.25 K/uL (4.50-11.00)
[2022-07-08 18:11] LABS: Slide Review Reflex No
[2022-07-08 18:27] LABS: Aspartate Amino Transferase* 56 U/L (12-35); Creatinine* 0.8 mg/dL (0.5-1.5); Est. Creatinine Clearance* 77.63; Estimated Glomerular Filt Rate 98 ml/min
[2022-07-08 18:28] LABS: Alanine Aminotransferase* 32 U/L (4-35); Blood Urea Nitrogen* 10 mg/dL (5-24)
[2022-07-09] VITALS (11 sets, daily range): BP systolic 135–157; BP diastolic 84–106; PULSE 59–82; RESP 16; TEMP 36.4–37; O2SAT 97–99
[2022-07-09] MEDS: LABETALOL HCL 100 MG TABLET 200 MG PO ×3 (07:32→21:05)
[2022-07-09 09:24] LABS: Hematocrit 34.6 % (33.0-51.0); Hemoglobin* 11.4 gm/dL (12.0-16.0); Mean Corpuscular HGB Conc 33 gm/dL (32-36); Mean Corpuscular Hemoglobin 29 pg (26-34); Mean Corpuscular Volume 87 fL (80-100); Platelet Count* 173 K/uL (140-440); White Blood Count* 8.58 K/uL (4.50-11.00)
[2022-07-09 09:30] LABS: Slide Review Reflex No
[2022-07-09 09:39] LABS: Aspartate Amino Transferase* 53 U/L (12-35); Creatinine* 0.9 mg/dL (0.5-1.5); Estimated Glomerular Filt Rate 86 ml/min
[2022-07-09 09:40] LABS: Alanine Aminotransferase* 35 U/L (4-35); Blood Urea Nitrogen* 9 mg/dL (5-24)
--- NOTE | 2022-07-09 11:36 | PM.OBDSVD1 ---
DS: Providers Provider Date Seen: 07/09/22 Date of admission: 07/07/22 09:37 Primary care physician: Not a Local Provider Admitting Clinician: Gretta Castillo MD Attending Physician on discharge: Gretta Castillo MD DS: Diagnosis Discharge Diagnosis (1) (normal spontaneous vaginal delivery): Status: Acute (2) Preeclampsia: Status: Acute (3) Hepatitis C antibody test positive: Status: Acute Exam Narrative: Exam Narrative: General: Alert active and oriented x3 Chest: Clear to auscultation bilaterally, regular rate rhythm of the heart Abdomen: Uterus well contracted, nontender Pelvic: Normal lochia Const: Vital Signs, click to edit/add: Vital Signs - 24 hr 07/08/22 11:47 07/08/22 16:30 07/08/22 17:43 Temperature 98 F 98.5 F Pulse Rate [Blood Pressure Cuff] Pulse Rate [Pulse Oximeter] 82 69 Respiratory Rate 16 16 Blood Pressure [Le ft Arm] 127/88 147/94 H 153/95 H Pulse Oximetry 97 100 Oxygen Delivery Me thod Room Air Room Air 07/08/22 19:02 07/08/22 20:10 07/09/22 00:25 Temperature 98.1 F 97.6 F Pulse Rate [Blood Pressure Cuff] Pulse Rate [Pulse Oximeter] 85 71 Respiratory Rate 16 16 Blood Pressure [Le ft Arm] 136/91 H 132/78 140/88 H Pulse Oximetry 95 97 Oxygen Delivery Me thod Room Air Room Air 07/09/22 04:30 07/09/22 05:25 07/09/22 07:27 Temperature 98.3 F 97.9 F Pulse Rate [Blood Pressure Cuff] Pulse Rate [Pulse Oximeter] 68 59 L Respiratory Rate 16 16 Blood Pressure [Le ft Arm] 153/106 H 154/86 H 156/88 H Pulse Oximetry 99 98 Oxygen Delivery Me thod Room Air Room Air 07/09/22 09:31 Temperature Pulse Rate [Blood Pressure Cuff] 65 Pulse Rate [Pulse Oximeter] Respiratory Rate Blood Pressure [Le ft Arm] 135/87 Pulse Oximetry Oxygen Delivery Me thod Documenting provider has reviewed patient's vital signs: yes OB - DS: Summary Hospital Course Hospital Course: The patient is a 36 year old G 5 P 3013 at 38 2/7 weeks weeks gestation that was admitted to the Center on 07/07/22 for induction of labor in the setting of preeclampsia. She had an uncomplicated vaginal delivery. She delivered a viable female infant. She is breast feeding. the patient has done well. Patient with elevated blood pressure, not on severity range range, no evidence of severity of preeclampsia during admission. She did have persistent mildly elevated blood pressure, recommended starting oral antihypertensive medication. Patient has tolerated antihypertensive medication well. Plans to monitor blood pressures at home, she does have a blood pressure monitor at home. Plans to follow up in clinic in 1 week for a blood pressure check. Peripartum Data Infant delivery method: Vaginal Infant Gender: Female Infant Discharge Plan: Home Status at Discharge Functional status at discharge: independent ambulation Overall status at discharge: patient is progressing back to baseline Time Spent with Patient Time attestation: Total time spent providing and/or coordinating discharge services: Time spent: Less than 30 minutes Discharge Plan Discharge Disposition: Home, Self-Care Date of Admission: 07/07/22 09:37 Attending Provider on Discharge: Thea Galvan Primary Care Provider: Provider,Not a Local Condition: Improved Anticipated Discharge Date/Time: 07/08/22 17:19 Discharge Medications: New ibuprofen 600 mg Tablet 600 mg PO Q6H PRN14 Days Qty: 60 0RF labetalol 100 mg Tablet 200 mg PO BID Qty: 30 0RF Lanolin (HPA) 100 % Cream 1 applic topical Q1H PRNQty: 1 0RF docusate sodium 100 mg Capsule 100 mg PO DAILY Qty: 0 0RF acetaminophen 500 mg Tablet 1,000 mg PO Q6H PRN (Reason: pain/fever) Qty: 0 0RF Continued Multi-DHA(with vit K) 27 mg iron-800 mcg-260 mg capsule PO Patient Education: OB Vaginal/Breast Feeding Activity Level: No Restrictions and Activity as Tolerated Discharge Diet: Regular Follow Up Appointments: Provider,Not a Local [Primary Care Provider] - Forms: [employer] Info Instructions
[2022-07-09] MEDS: NIFEdipine 30 MG TAB.ER.24 PO (17:29)
--- NOTE | 2022-07-09 17:55 | PM.OBPRCVD ---
Procedure Delivery date: 07/07/22 Procedure Done: Global Estimated blood loss (mL): 300 Infant Gender: Female total score - 1 minute: 9 total score - 5 minute: 9
--- NOTE | 2022-07-09 17:58 | PM.OBPNVD1 ---
OB - PN:Subj Subjective Date Seen: 07/09/22 Narrative: PPD 2, patient feeling well, would like to go home. Preeclampsia without severe features, AST has continued to down trend, has never doubled. Patient has continued with mild range elevated blood pressures, no persistent severe range blood pressures. No INFORMATION TECHNOLOGY AUDITOR irritability symptoms, headaches, visual changes or epigastric pain. OB - PN: Obj Exam Physical Exam: Vital signs: Temp Pulse Resp BP Pulse Ox O2 Del Method 98.2 F 62 16 157/105 H 98 07/09/22 17:03 07/09/22 17:03 07/09/22 17:03 07/09/22 17:03 07/09/22 17:03 07/09/22 17:03 Narrative: General: AAOX3 CHEST:CTA X2, RRR ABD: uterus well contracted, non tender Pelvic: Normal lochia OB - PN: Obj Data Labs Labs: Laboratory Results - last 24 hr 07/08/22 07/08/22 07/09/22 17:59 17:59 09:19 WBC 9.25 RBC 4.01 Hgb 11.4 L Hct 34.2 MCV 85 MCH 28 MCHC 33 Plt Count 175 BUN 10 9 Creatinine 0.8 0.9 Estimated Creat Clear 77.63 69.00 Estimated GFR 98 86 AST 56 H 53 H ALT 32 35 07/09/22 09:19 WBC 8.58 RBC 4.00 Hgb 11.4 L Hct 34.6 MCV 87 MCH 29 MCHC 33 Plt Count 173 BUN Creatinine Estimated Creat Clear Estimated GFR AST ALT OB - PN: A/P Vaginal Delivery Assessment and Plan (1) (normal spontaneous vaginal delivery): Status: Acute Assessment and Plan: Preeclampsia w/o severe features. At this BP range w/o other indications of severity it is controversial starting magnesium therapy. We did increase Labetalol 200mg TID, even with these changes she continues with persistent BPs in the 150s systolics, heart rate borderline low, cannot increase labetalol any further, will proceed to add Procardia 30mg daily. Should not discontinue labetalol abruptly either to avoid rebound hypertension. Will order a new set of labs tonight. Will continue close monitoring. (2) Preeclampsia: Status: Acute (3) Hepatitis C antibody test positive: Status: Acute
[2022-07-09 20:12] LABS: Hematocrit 33.6 % (33.0-51.0); Hemoglobin* 10.9 gm/dL (12.0-16.0); Mean Corpuscular HGB Conc 32 gm/dL (32-36); Mean Corpuscular Hemoglobin 28 pg (26-34); Mean Corpuscular Volume 87 fL (80-100); Platelet Count* 188 K/uL (140-440); Red Blood Count 3.87 m/uL (4.00-5.20); White Blood Count* 9.32 K/uL (4.50-11.00)
[2022-07-09 20:28] LABS: Slide Review Reflex No
[2022-07-09 20:32] LABS: Alanine Aminotransferase* 37 U/L (4-35); Aspartate Amino Transferase* 46 U/L (12-35); Creatinine* 0.9 mg/dL (0.5-1.5); Estimated Glomerular Filt Rate 86 ml/min
[2022-07-09 20:33] LABS: Blood Urea Nitrogen* 14 mg/dL (5-24)
[2022-07-10 00:35] VITALS: BP 148/92; PULSE 78; RESP 16; TEMP 36.8; O2SAT 97
[2022-07-10 04:10] VITALS: BP 131/84; PULSE 91; RESP 16; TEMP 36.8; O2SAT 97
--- NOTE | 2022-07-10 07:19 | P.DS_ITS ---
DS: Providers Provider Time Seen by Provider: 07:19 Date Seen: 07/10/22 Date of admission: 07/07/22 09:37 Primary care physician: Not a Local Provider Admitting Clinician: Gretta Castillo MD Attending Physician on discharge: Halima Fuentes CNM & Rachelle Altamirano CNM Date of Discharge: 07/10/22 DS: Diagnosis Discharge Diagnosis (1) (normal spontaneous vaginal delivery): Status: Acute (2) Preeclampsia: Status: Acute (3) state: Status: Acute (4) Lactating mother: Status: Acute Exam Const: Vital Signs, click to edit/add: Vital Signs - 24 hr 07/09/22 07:27 07/09/22 09:31 07/09/22 12:16 Temperature 97.9 F 98.6 F Pulse Rate [Blood Pressure Cuff] 65 65 Pulse Rate [Pulse Oximeter] 59 L Respiratory Rate 16 16 Blood Pressure [Le ft Arm] 156/88 H 135/87 153/91 H Pulse Oximetry 98 98 Oxygen Delivery Me thod Room Air Room Air 07/09/22 14:04 07/09/22 15:10 07/09/22 17:03 Temperature 98.2 F Pulse Rate [Blood Pressure Cuff] 62 Pulse Rate [Pulse Oximeter] 82 75 Respiratory Rate 16 Blood Pressure [Le ft Arm] 150/95 H 138/93 H 157/105 H Pulse Oximetry 98 Oxygen Delivery Me thod Room Air 07/09/22 19:30 07/10/22 00:35 07/10/22 04:10 Temperature 98.2 F 98.2 F 98.2 F Pulse Rate [Blood Pressure Cuff] 75 78 91 Pulse Rate [Pulse Oximeter] Respiratory Rate 16 16 16 Blood Pressure [Le ft Arm] 144/84 H 148/92 H 131/84 Pulse Oximetry 98 97 97 Oxygen Delivery Me thod Room Air Room Air Room Air 07/09/22 21:10 Temperature Pulse Rate [Blood Pressure Cuff] 75 Pulse Rate [Pulse Oximeter] Respiratory Rate Blood Pressure [Le ft Arm] 145/90 H Pulse Oximetry Oxygen Delivery Me thod Documenting provider has reviewed patient's vital signs: yes Common normals: no apparent distress, average body habitus, oriented x3, no limitations, healthy appearing, alert and well nourished General appearance: cooperative, comfortable, well kempt and well developed Orientation/consciousness: Yes awake, Yes oriented to person, Yes oriented to place and Yes oriented to time HENMT: Common normals: normocephalic Head and scalp: normocephalic Eye: General eye: normal appearance of both eyes Neck & C-Spine: Common normals: full ROM General: normal visual inspection Chest: Common normals: inspection of chest normal and palpation of chest normal Resp: Common normals: normal respiratory effort and clear to auscultation bilaterally Auscultation: clear to auscultation bilaterally Cardio: Common normals: regular rate and regular rhythm Rate: regular rate Rhythm: regular rhythm GI: Common normals: soft to palpation and non-tender Palpation: soft Back & Pelvis: Common normals: thoracic and lumbar spine normal to inspection and no thoracic nor lumbar tenderness Extremity: Common normals: normal to inspection, full ROM and no pedal edema Neuro: Common normals: oriented x3 Sensorium/orientation: awake, alert, oriented to person, oriented to place and oriented to time Psych: Common normals: mental status grossly normal Appearance: well kempt Skin: Common normals: no rashes or lesions noted General skin exam: no rashes or lesions noted OB - DS: Summary Hospital Course Hospital Course: The patient is a 36 year old G 5 now P 5 at 38 weeks 2 days gestation that was admitted to the Center on 07/07/22 for induction of labor r/t pre- eclampsia. She had an uncomplicated vaginal delivery. She delivered a viable female . Complicated by a second degree perineal lacertation. She is pumping and bottle feeding. the patient has done well. Peripartum Data delivery method: Vaginal Laceration description: Perineal - 2nd Degree complications: none [place] Infant Gender: Female Discharge Plan: Home Time Spent with Patient Time attestation: Total time spent providing and/or coordinating discharge services: Discharge Plan Discharge Disposition: Home, Self-Care Date of Admission: 07/07/22 09:37 Attending Provider on Discharge: Halima Fuentes Primary Care Provider: Provider,Not a Local Condition: Improved Anticipated Discharge Date/Time: 07/08/22 17:19 Discharge Medications: New ibuprofen 600 mg Tablet 600 mg PO Q6H PRN14 Days Qty: 60 0RF labetalol 100 mg Tablet 200 mg PO BID Qty: 30 0RF Lanolin (HPA) 100 % Cream 1 applic topical Q1H PRNQty: 1 0RF docusate sodium 100 mg Capsule 100 mg PO DAILY Qty: 0 0RF acetaminophen 500 mg Tablet 1,000 mg PO Q6H PRN (Reason: pain/fever) Qty: 0 0RF Continued Multi-DHA(with vit K) 27 mg iron-800 mcg-260 mg capsule PO Discharge Orders: Discharge Order (Routine); Ordered 07/10/22 Ordered By: Halima Fuentes Patient Education: OB Vaginal/Breast Feeding Activity Restrictions/Additional Instructions: Discharge instructions were reviewed with the patient including signs and symptoms of infection and home going medications Nothing vaginally for 6 weeks: no tampons or intercourse Do not drive while taking narcotic pain medication(s) Off Work or School for 8 weeks Symptoms to report to doctor: * Bleeding that saturates more than one pad per hour * Passing clots larger than the size of a golf ball * Pain not relieved by prescribed medication * Fever above 100.4 degrees Fahrenheit * A foul vaginal odor * Difficulty in emotions, mood, and functions * Thoughts of hurting yourself and/or * Painful, reddened area in your breast * Any drainage, redness, or tenderness in your IV/epidural site * Severe headache that doesn't improve after taking medications * Changes in vision, including temporary loss of vision, blurred vision, and/or light sensitivity * Upper abdominal pain (usually under ribs on the right side) * Decrease in urination or painful, frequent urinating * Chest pain * Shortness of breath * Tenderness or pain with redness and/swelling in the calf(s) of your leg [facility] for a BP check?in one week Call with BP greater than or equal to 160/110 1-week visit: discuss infant feeding concerns, review control options and screen for anxiety/depression. 6-week visit for an annual exam. consultation services are available to all mothers and babies for the first year after delivery.? To make an appointment, please call [phone]. Activity Level: No Restrictions and Activity as Tolerated Discharge Diet: Regular Follow Up Appointments: [facility] [Provider Group] (1 week and 6 weeks) Forms: [email or web address] Info Instructions
[2022-07-10 07:40] VITALS: BP 127/85; PULSE 83; RESP 16; TEMP 36.7; O2SAT 97
[2022-07-10] MEDS: LABETALOL HCL 100 MG TABLET 200 MG PO (09:07)
[2022-07-10 12:42] LABS: Alanine Aminotransferase* 44 U/L (4-35); Aspartate Amino Transferase* 52 U/L (12-35); Blood Urea Nitrogen* 12 mg/dL (5-24); Creatinine* 0.8 mg/dL (0.5-1.5); Est. Creatinine Clearance* 77.63; Estimated Glomerular Filt Rate 98 ml/min
[2022-07-10 12:43] LABS: Hematocrit 34.4 % (33.0-51.0); Hemoglobin* 11.2 gm/dL (12.0-16.0); Mean Corpuscular HGB Conc 33 gm/dL (32-36); Mean Corpuscular Hemoglobin 28 pg (26-34); Mean Corpuscular Volume 86 fL (80-100); Platelet Count* 206 K/uL (140-440); Slide Review Reflex No; White Blood Count* 8.82 K/uL (4.50-11.00)
== END 2022-07-10 09:18 | disposition home or self-care (01) | DRG 806 ==
PROVIDERS: Obstetrics & Gynecology; Admitting Provider Obstetrics & Gynecology; Visit Provider Obstetrics & Gynecology
DX: O14.04 Mild to moderate pre-eclampsia, complicating childbirth (principal); O98.42 Viral hepatitis complicating childbirth; Z37.0 Single live birth; B19.20 Unspecified viral hepatitis C without hepatic coma; O70.1 Second degree perineal laceration during delivery; Z3A.38 38 weeks gestation of pregnancy
CPT/HCPCS: 36415; 82565; 82570; 84156; 84450; 84460; 84520; 85027; 87635; 88307; A9270; J7120